=== PATIENT | female | born 1930 | race Caucasian/White ===

== ENCOUNTER 2017-02-17 13:05 | Inpatient (IN) | payer MEDICARE, OTHER ==
[~2017-02-17] VITALS: Ht 157.5 cm; Wt 67.5 kg
[~2017-02-17 13:05] MED LIST: ALBU8.5H IH; ASPI81TA2 PO; BRIM10DR10 OU; BRIN10DR OU; BUPR150T2 PO; HYDR-3971 PO; IBUP100T36 PO; METF500T4 PO; SIMV-260 PO; VITA80008 PO; ZOLP5TAB8 PO; [UNRECOGNIZED DRUG - OTHER]
[2017-02-17 13:47] LABS: GLUCOSE,POINT OF CARE 116 MG/DL (70-110)
[2017-02-17 15:07] LABS: ANION GAP 11 mmol/L (8-16); CALCIUM, TOTAL 9.1 mg/dL (8.8-10.5); CARBON DIOXIDE 23 mmol/L (22-29); CHLORIDE 101 mmol/L (98-107); CREATININE 0.78 mg/dL (0.60-1.30); GLOMERULAR FILTR. RATE CALC > 60 mL/min (>60); POTASSIUM 4.9 mmol/L (3.5-5.1); SODIUM SERUM 135 mmol/L (136-145); UREA NITROGEN, BLOOD 21 mg/dL (7-18)
[2017-02-17 15:13] LABS: ALANINE AMINOTRANSFERASE 20 U/L (12-78); ALBUMIN 3.7 g/dL (3.4-5.0); ASPARTATE AMINOTRANSFERASE 29 U/L (15-37); BILIRUBIN,TOTAL 0.6 mg/dL (0.1-1.0); TOTAL PROTEIN, SERUM 7.1 g/dL (6.4-8.2)
[2017-02-17] MEDS ORDERED: ACETAMINOPHEN 500 MG TABLET PO ONE (16:15)
[2017-02-17] MEDS ORDERED: IBUP-1681 PO (16:20)
[2017-02-17 16:40] LABS: HEMATOCRIT 40.8 % (36-46); HEMOGLOBIN 13.1 g/dL (12.0-16.0); MEAN CORPUSCULAR HEMOGLOBIN 29.2 pg (26.0-34.0); MEAN CORPUSCULAR HGB CONC 32.2 G/dL (31.0-37.0); MEAN CORPUSCULAR VOLUME 91 fL (80-100); PLATELET COUNT (AUTO) 296 K/uL (150-450); RED CELL DISTRIBUTION WIDTH 14.5 % (11.5-14.5); WHITE BLOOD COUNT (AUTO) 18.9 K/uL (4.5-11.0)
[2017-02-17 17:06] LABS: BAND NEUTROPHILS % (MANUAL) 12 % (1-5); LYMPHOCYTES % (MANUAL) 5 % (22-44); TOTAL CELLS COUNTED 100
[2017-02-17 17:18] LABS: APPEARANCE,URINE CLEAR (CLEAR); GLUCOSE, URINE (UA) NEGATIVE (NEGATIVE); KETONES,URINE TRACE mg/dL (NEGATIVE); LEUKOCYTE ESTERASE ,URINE TRACE (NEGATIVE); OCCULT BLOOD,URINE NEGATIVE (NEGATIVE); PH,URINE 6.5 (5.0-8.0); PROTEIN,URINE NEGATIVE (NEGATIVE)
[2017-02-17 17:19] LABS: RBC,URINE 0-2 /HPF (0-2); SQUAMOUS EPITHELIAL CELL,UR Few /LPF (None Seen)
[2017-02-17] MEDS ORDERED: SODIUM CHLORIDE 0.9% 1,000 ML IV ONE (17:45)
[2017-02-17] MEDS ORDERED: CefTRIAXone 1 GM/DEXTROSE 50 ML IV ONE (17:45)
[2017-02-17] MEDS ORDERED: 0.9% SODIUM CHLORIDE 10 ML SYRINGE IVP PRN (19:00)
[2017-02-17] MEDS ORDERED: ACETAMINOPHEN 325 MG TABLET PO PRN ×2 (19:00→20:30)
[2017-02-17] MEDS ORDERED: INSULIN ASPART 100 UNITS/ML SQ PRN (20:30)
[2017-02-17] MEDS ORDERED: MAGNESIUM HYDROXIDE SUSPENSION 30 ML UDCUP PO PRN (20:30)
[2017-02-17] MEDS ORDERED: ZOLPIDEM TARTRATE 5 MG TABLET PO PRN (20:30)
[2017-02-17] MEDS ORDERED: DEXTROSE 50%-WATER 25 GM/50 ML SYRINGE IVP PRN (20:30)
[2017-02-17] MEDS ORDERED: MORPHINE SULFATE 2 MG/ML SYRINGE IVP PRN (20:30)
[2017-02-17] MEDS ORDERED: ONDANSETRON HCL 4 MG/2 ML VIAL IVP PRN (20:30)
[2017-02-17] MEDS ORDERED: BISACODYL 10 MG RECTAL RECTAL SUPPOSITORY PR PRN (20:30)
[2017-02-17] MEDS ORDERED: ALBUTEROL SULFATE 2.5 MG/0.5 ML NEB SOLUTION NEB PRN (20:30)
[2017-02-17] MEDS ORDERED: IPRATROPIUM BROMIDE 0.5 MG/2.5 ML NEB SOLUTION NEB PRN (20:30)
[2017-02-17 20:50] VITALS: BP 137/70
[2017-02-17] MEDS: SIMVASTATIN 20 MG TABLET PO SCH (21:57)
[2017-02-17] MEDS: BRIMONIDINE/TIMOLOL 0.2-0.5% 5 ML OPHTHALMIC SOLUTION OU SCH (21:57)
[2017-02-17 23:35] VITALS: BP 132/58
[2017-02-18 04:54] VITALS: BP 123/66
[2017-02-18 06:17] LABS: GLUCOSE,POINT OF CARE 134 MG/DL (70-110)
[2017-02-18 06:52] LABS: GLUCOSE,POINT OF CARE 119 MG/DL (70-110)
[2017-02-18 07:26] VITALS: BP 143/77
[2017-02-18 09:23] LABS: BASOPHILS # (AUTO) 0.04 K/uL (0.00-0.20); BASOPHILS % (AUTO) 0.3 % (0.0-2.0); EOSINOPHILS # (AUTO) 0.37 K/uL (0.00-0.70); EOSINOPHILS % (AUTO) 2.72 % (1.0-6.0); HEMATOCRIT 36.4 % (36-46); HEMOGLOBIN 11.9 g/dL (12.0-16.0); LYMPHOCYTES # (AUTO) 1.4 K/uL (1.0-4.8); LYMPHOCYTES % (AUTO) 9.9 % (22.0-44.0); MEAN CORPUSCULAR HEMOGLOBIN 29.8 pg (26.0-34.0); MEAN CORPUSCULAR HGB CONC 32.6 G/dL (31.0-37.0); MEAN CORPUSCULAR VOLUME 91 fL (80-100); MONOCYTES # (AUTO) 0.9 K/uL (0.1-1.0); MONOCYTES % (AUTO) 6.8 % (2.0-9.0); NEUTROPHILS % (AUTO) 80.3 % (40.0-70.0); PLATELET COUNT (AUTO) 353 K/uL (150-450); RED BLOOD CELL COUNT(AUTO) 3.99 MIL/uL (4.00-5.20); RED CELL DISTRIBUTION WIDTH 14.5 % (11.5-14.5); WHITE BLOOD COUNT (AUTO) 13.7 K/uL (4.5-11.0)
[2017-02-18] MEDS: BRIMONIDINE/TIMOLOL 0.2-0.5% 5 ML OPHTHALMIC SOLUTION OU SCH ×2 (09:26→20:52)
[2017-02-18] MEDS: CefTRIAXone 1 GM/DEXTROSE 50 ML IV SCH (09:26)
[2017-02-18] MEDS: NYSTATIN 15 GM POWDER BOTTLE TP SCH ×2 (09:26→20:53)
[2017-02-18] MEDS: PANTOPRAZOLE SODIUM 40 MG DR TABLET PO SCH (09:27)
[2017-02-18] MEDS: MetFORMIN HCL 500 MG TABLET PO SCH ×3 (09:27→17:51)
[2017-02-18] MEDS: BRINZOLAMIDE 1% 10 ML OPHTHALMIC SUSPENSION OU SCH (09:27)
[2017-02-18 09:35] LABS: ALANINE AMINOTRANSFERASE 24 U/L (12-78); ANION GAP 10 mmol/L (8-16); ASPARTATE AMINOTRANSFERASE 21 U/L (15-37); BILIRUBIN,TOTAL 0.6 mg/dL (0.1-1.0); CALCIUM, TOTAL 8.1 mg/dL (8.8-10.5); CARBON DIOXIDE 23 mmol/L (22-29); CHLORIDE 103 mmol/L (98-107); CREATININE 0.71 mg/dL (0.60-1.30); GLOMERULAR FILTR. RATE CALC > 60 mL/min (>60); PHOSPHORUS 2.4 mg/dL (2.5-4.9); POTASSIUM 3.8 mmol/L (3.5-5.1); SODIUM SERUM 136 mmol/L (136-145); TOTAL PROTEIN, SERUM 6.4 g/dL (6.4-8.2); UREA NITROGEN, BLOOD 13 mg/dL (7-18)
[2017-02-18 09:41] LABS: HEMOGLOBIN A1C 6.5 % (4.5-6.2)
[2017-02-18 10:36] LABS: INR 1.1 (0.9-1.1); PROTHROMBIN TIME 11.2 SEC (9.4-11.6)
[2017-02-18 11:09] VITALS: BP 122/83
[2017-02-18 11:26] LABS: GLUCOSE,POINT OF CARE 137 MG/DL (70-110)
[2017-02-18 15:15] VITALS: BP 105/49
[2017-02-18 18:07] LABS: GLUCOSE,POINT OF CARE 123 MG/DL (70-110)
[2017-02-18 20:05] VITALS: BP 118/52
[2017-02-18] MEDS: HYDROCODONE/ACETAMINOPHEN 5-325 MG TABLET PO PRN (20:52)
[2017-02-18] MEDS: SIMVASTATIN 20 MG TABLET PO SCH (20:53)
[2017-02-18 23:06] VITALS: BP 126/66
[2017-02-19 01:01] LABS: GLUCOSE,POINT OF CARE 109 MG/DL (70-110)
[2017-02-19 03:30] VITALS: BP 132/70
[2017-02-19 07:49] VITALS: BP 149/78
[2017-02-19] MEDS: CefTRIAXone 1 GM/DEXTROSE 50 ML IV SCH (07:57)
[2017-02-19] MEDS: PANTOPRAZOLE SODIUM 40 MG DR TABLET PO SCH (07:57)
[2017-02-19] MEDS: MetFORMIN HCL 500 MG TABLET PO SCH ×3 (07:57→17:29)
[2017-02-19] MEDS: HYDROCODONE/ACETAMINOPHEN 5-325 MG TABLET PO PRN (07:57)
[2017-02-19] MEDS: NYSTATIN 15 GM POWDER BOTTLE TP SCH ×2 (07:58→21:19)
[2017-02-19] MEDS ORDERED: SODIUM CHLORIDE 0.9% 500 ML IV ONE (08:05)
[2017-02-19 11:06] LABS: GLUCOSE,POINT OF CARE 116 MG/DL (70-110)
[2017-02-19 11:41] VITALS: BP 125/75
[2017-02-19] MEDS: BRINZOLAMIDE 1% 10 ML OPHTHALMIC SUSPENSION OU SCH (13:31)
[2017-02-19] MEDS: BRIMONIDINE/TIMOLOL 0.2-0.5% 5 ML OPHTHALMIC SOLUTION OU SCH ×2 (13:31→21:19)
[2017-02-19 13:57] LABS: GLUCOSE,POINT OF CARE 97 MG/DL (70-110)
[2017-02-19 15:52] VITALS: BP 123/81
[2017-02-19 17:53] LABS: GLUCOSE,POINT OF CARE 118 MG/DL (70-110)
[2017-02-19 19:20] VITALS: BP 123/70
[2017-02-19] MEDS: SIMVASTATIN 20 MG TABLET PO SCH (21:19)
[2017-02-19 23:27] LABS: GLUCOSE,POINT OF CARE 118 MG/DL (70-110)
[2017-02-20 00:15] VITALS: BP 128/65
[2017-02-20 05:00] VITALS: BP 132/59
[2017-02-20 06:12] LABS: GLUCOSE,POINT OF CARE 106 MG/DL (70-110)
[2017-02-20] MEDS: MetFORMIN HCL 500 MG TABLET PO SCH ×4 (08:00→18:00)
[2017-02-20] MEDS: CefTRIAXone 1 GM/DEXTROSE 50 ML IV SCH (08:19)
[2017-02-20] MEDS: NYSTATIN 15 GM POWDER BOTTLE TP SCH ×2 (08:20→20:12)
[2017-02-20] MEDS: BRIMONIDINE/TIMOLOL 0.2-0.5% 5 ML OPHTHALMIC SOLUTION OU SCH ×2 (08:20→20:12)
[2017-02-20] MEDS: BRINZOLAMIDE 1% 10 ML OPHTHALMIC SUSPENSION OU SCH (08:20)
[2017-02-20] MEDS: PANTOPRAZOLE SODIUM 40 MG DR TABLET PO SCH (08:20)
[2017-02-20 10:12] VITALS: BP 132/59
[2017-02-20 13:17] LABS: GLUCOSE,POINT OF CARE 106 MG/DL (70-110)
[2017-02-20 15:05] VITALS: BP 134/69
[2017-02-20 18:19] LABS: BASOPHILS % (AUTO) 0.2 % (0.0-2.0); EOSINOPHILS % (AUTO) 2.7 % (1.0-6.0); HEMOGLOBIN 12.7 g/dL (12.0-16.0); LYMPHOCYTES # (AUTO) 1.3 K/uL (1.0-4.8); LYMPHOCYTES % (AUTO) 9.3 % (22.0-44.0); MEAN CORPUSCULAR HEMOGLOBIN 28.8 pg (26.0-34.0); MEAN CORPUSCULAR HGB CONC 31.8 G/dL (31.0-37.0); MEAN CORPUSCULAR VOLUME 91 fL (80-100); MONOCYTES % (AUTO) 7.1 % (2.0-9.0); NEUTROPHILS # (AUTO) 11.3 K/uL (1.8-7.7); NEUTROPHILS % (AUTO) 80.7 % (40.0-70.0); PLATELET COUNT (AUTO) 389 K/uL (150-450); RED BLOOD CELL COUNT(AUTO) 4.41 MIL/uL (4.00-5.20); RED CELL DISTRIBUTION WIDTH 13.9 % (11.5-14.5)
[2017-02-20 18:27] LABS: CREATININE 0.9 mg/dL (0.60-1.30); POTASSIUM 4.4 mmol/L (3.5-5.1)
[2017-02-20 18:35] LABS: ALBUMIN 3.1 g/dL (3.4-5.0); BILIRUBIN,TOTAL 0.3 mg/dL (0.1-1.0); TOTAL PROTEIN, SERUM 7.4 g/dL (6.4-8.2)
[2017-02-20] MEDS: HYDROCODONE/ACETAMINOPHEN 5-325 MG TABLET PO PRN (20:11)
[2017-02-20] MEDS: SIMVASTATIN 20 MG TABLET PO SCH (20:11)
[2017-02-20 23:18] VITALS: BP 128/68
[2017-02-21] MEDS: HYDROCODONE/ACETAMINOPHEN 5-325 MG TABLET PO PRN ×2 (02:18→12:10)
[2017-02-21 05:33] LABS: GLUCOSE,POINT OF CARE 135 MG/DL (70-110)
[2017-02-21 05:42] LABS: GLUCOSE,POINT OF CARE 122 MG/DL (70-110)
[2017-02-21 06:05] VITALS: BP 136/70
[2017-02-21 07:42] LABS: GLUCOSE,POINT OF CARE 139 MG/DL (70-110)
[2017-02-21] MEDS: CefTRIAXone 1 GM/DEXTROSE 50 ML IV SCH (07:44)
[2017-02-21 07:50] VITALS: BP 113/61
[2017-02-21] MEDS: BRIMONIDINE/TIMOLOL 0.2-0.5% 5 ML OPHTHALMIC SOLUTION OU SCH (07:58)
[2017-02-21] MEDS: PANTOPRAZOLE SODIUM 40 MG DR TABLET PO SCH (07:58)
[2017-02-21] MEDS: MetFORMIN HCL 500 MG TABLET PO SCH ×3 (07:58→17:46)
[2017-02-21] MEDS: BRINZOLAMIDE 1% 10 ML OPHTHALMIC SUSPENSION OU SCH (07:59)
[2017-02-21] MEDS: NYSTATIN 15 GM POWDER BOTTLE TP SCH (08:09)
[2017-02-21 11:15] VITALS: BP 123/79
[2017-02-21 11:42] LABS: GLUCOSE,POINT OF CARE 138 MG/DL (70-110)
[2017-02-21 15:30] VITALS: BP 142/70
[2017-02-21] MEDS ORDERED: CEFX1I IV (16:06)
[2017-02-21] MEDS ORDERED: NYST1POW4 MC (16:07)
[2017-02-21] MEDS ORDERED: PANT40TA25 PO (16:07)
[2017-02-21] MEDS ORDERED: ACET-2902 PO (16:08)
[2017-02-21] MEDS ORDERED: BISA5TAB12 PO (16:09)
[2017-02-21] MEDS ORDERED: HYDR-309 PO (16:10)
[2017-02-21] MEDS ORDERED: INSNOV SQ (16:11)
[2017-02-21] MEDS ORDERED: MOM30 PO (16:12)
[2017-02-21] MEDS ORDERED: ZOLP5 PO (16:13)
[2017-02-23 17:22] LABS: GLUCOSE,POINT OF CARE 157 MG/DL (70-110)
== END 2017-02-21 18:45 | DRG 872 ==
LOC: EMS 13:07 → 6N 19:35
PROVIDERS: ADMIT Internal Medicine; ATTEND Internal Medicine
DX: A41.9 Sepsis, unspecified organism (principal); N39.0 Urinary tract infection, site not specified; E87.1 Hypo-osmolality and hyponatremia; E11.65 Type 2 diabetes mellitus with hyperglycemia; M19.90 Unspecified osteoarthritis, unspecified site; J45.909 Unspecified asthma, uncomplicated; K21.9 Gastro-esophageal reflux disease without esophagitis; H40.9 Unspecified glaucoma; E78.00 Pure hypercholesterolemia, unspecified; G47.00 Insomnia, unspecified; R29.6 Repeated falls; M41.86 Other forms of scoliosis, lumbar region; E78.5 Hyperlipidemia, unspecified; M47.9 Spondylosis, unspecified; F32.9 Major depressive disorder, single episode, unspecified; I70.0 Atherosclerosis of aorta; M79.602 Pain in left arm; R07.81 Pleurodynia; Z88.8 Allergy status to other drugs, medicaments and biological substances; Z79.82 Long term (current) use of aspirin; Z79.899 Other long term (current) drug therapy; Z79.1 Long term (current) use of non-steroidal anti-inflammatories (NSAID); Z79.84 Long term (current) use of oral hypoglycemic drugs; Z79.891 Long term (current) use of opiate analgesic; Z87.81 Personal history of (healed) traumatic fracture
CPT/HCPCS: 70450; 71101; 72131; 82962; 83036; 83735; 84100; 87040; 96365; 96366; 97116; 97162; 97530; 99285; J0696; J2270; J7030; J7040

== ENCOUNTER 2018-03-03 06:58 | Inpatient (IN) | payer MEDICARE, OTHER ==
[~2018-03-03] VITALS: Ht 153 cm; Wt 64.0 kg
[~2018-03-03 06:58] MED LIST changes: +ACET-2902 PO; -ALBU8.5H IH; -ASPI81TA2 PO; +BISA5TAB12 PO; -BUPR150T2 PO; +CEFX1I IV; +HYDR-309 PO; -HYDR-3971 PO; -IBUP100T36 PO; +INSNOV SQ; +METF-444 PO; -METF500T4 PO; +MOM30 PO; +NYST1POW4 TP; +PANT40TA25 PO; -VITA80008 PO; +ZOLP5 PO; -[UNRECOGNIZED DRUG - OTHER]
[2018-03-03 07:33] LABS: GLUCOSE,POINT OF CARE 131 MG/DL (70-110)
[2018-03-03 08:28] LABS: BASOPHILS % (AUTO) 0.5 % (0.0-2.0); EOSINOPHILS % (AUTO) 1.3 % (1.0-6.0); HEMATOCRIT 32.7 % (36-46); HEMOGLOBIN 11.2 g/dL (12.0-16.0); LYMPHOCYTES # (AUTO) 1.2 K/uL (1.0-4.8); LYMPHOCYTES % (AUTO) 9.3 % (22.0-44.0); MEAN CORPUSCULAR HEMOGLOBIN 31.2 pg (26.0-34.0); MEAN CORPUSCULAR HGB CONC 34.2 G/dL (31.0-37.0); MEAN CORPUSCULAR VOLUME 91 fL (80-100); MONOCYTES # (AUTO) 1.1 K/uL (0.1-1.0); MONOCYTES % (AUTO) 8.8 % (2.0-9.0); NEUTROPHILS # (AUTO) 10.2 K/uL (1.8-7.7); NEUTROPHILS % (AUTO) 80.1 % (40.0-70.0); PLATELET COUNT (AUTO) 320 K/uL (150-450); RED BLOOD CELL COUNT(AUTO) 3.58 MIL/uL (4.00-5.20); RED CELL DISTRIBUTION WIDTH 14.1 % (11.5-14.5)
[2018-03-03 08:37] LABS: PROTHROMBIN TIME 10.1 SEC (9.4-11.6)
[2018-03-03 08:38] LABS: ANION GAP 9 mmol/L (8-16); CALCIUM, TOTAL 8.5 mg/dL (8.8-10.5); CARBON DIOXIDE 24 mmol/L (22-29); CHLORIDE 99 mmol/L (98-107); CREATININE 0.95 mg/dL (0.60-1.30); GLOMERULAR FILTR. RATE CALC 56 mL/min (>60); GLUCOSE,RANDOM 125 mg/dL (70-110); POTASSIUM 4.8 mmol/L (3.5-5.1); SODIUM SERUM 132 mmol/L (136-145); UREA NITROGEN, BLOOD 37 mg/dL (7-18)
[2018-03-03 09:02] LABS: ALANINE AMINOTRANSFERASE 50 U/L (12-78); ALBUMIN 3.1 g/dL (3.4-5.0); ALKALINE PHOSPHATASE 80 U/L (46-116); ASPARTATE AMINOTRANSFERASE 33 U/L (15-37); BILIRUBIN,TOTAL 0.7 mg/dL (0.1-1.0); CREATINE KINASE MB 3.3 ng/mL (0-5); CREATINE KINASE, TOTAL 205 U/L (26-192); TOTAL PROTEIN, SERUM 5.7 g/dL (6.4-8.2)
[2018-03-03 09:35] LABS: B-TYPE NATRIURETIC PEPTIDE 797 pg/mL (0-100)
[2018-03-03] MEDS ORDERED: NITROGLYCERIN 2% (1 GM=INCH) PACKET TP ONE (10:00)
[2018-03-03 10:25] LABS: APPEARANCE,URINE CLOUDY (CLEAR); BILIRUBIN,URINE NEGATIVE (NEGATIVE); GLUCOSE, URINE (UA) NEGATIVE (NEGATIVE); KETONES,URINE NEGATIVE (NEGATIVE); LEUKOCYTE ESTERASE ,URINE SMALL (NEGATIVE); NITRATE,URINE NEGATIVE (NEGATIVE); OCCULT BLOOD,URINE NEGATIVE (NEGATIVE); PH,URINE 5.5 (5.0-8.0); PROTEIN,URINE NEGATIVE (NEGATIVE); UROBILINOGEN,URINE 0.2 mg/dL (<=1.0)
[2018-03-03] MEDS: FUROSEMIDE 40 MG/4 ML VIAL IVP ONE ×2 (10:25→11:25)
[2018-03-03 11:01] LABS: BACTERIA,URINE Few /HPF (None Seen); RBC,URINE 0-2 /HPF (0-2); SQUAMOUS EPITHELIAL CELL,UR Few /LPF (None Seen)
[2018-03-03] MEDS ORDERED: DEXTROSE 50%-WATER 25 GM/50 ML SYRINGE IVP PRN (11:15)
[2018-03-03] MEDS ORDERED: ALBUTEROL SULFATE 2.5 MG/0.5 ML NEB SOLUTION NEB PRN (11:15)
[2018-03-03] MEDS ORDERED: CefTRIAXone SODIUM 1 GM in DEXTROSE 5%-WATER 10 ML IV ONE ×2 (11:15→11:30)
[2018-03-03] MEDS ORDERED: MAGNESIUM HYDROXIDE SUSPENSION 30 ML UDCUP PO PRN (11:15)
[2018-03-03 11:47] VITALS: BP 119/65
[2018-03-03 12:31] VITALS: BP 153/77
[2018-03-03 15:26] VITALS: BP 145/79
[2018-03-03] MEDS: ASPIRIN 81 MG CHEWABLE TABLET PO SCH (15:42)
[2018-03-03] MEDS: LISINOPRIL 10 MG TABLET PO SCH (15:42)
[2018-03-03] MEDS: INSULIN LISPRO 100 UNITS/ML SQ PRN (17:30)
[2018-03-03] MEDS: ACETAMINOPHEN 325 MG TABLET PO PRN ×2 (17:35→20:26)
[2018-03-03 20:21] VITALS: BP 107/48
[2018-03-03] MEDS: ATORVASTATIN CALCIUM 20 MG TABLET PO SCH (20:25)
[2018-03-03] MEDS: CARVEDILOL 6.25 MG TABLET PO SCH (20:25)
[2018-03-03] MEDS: DOCUSATE SODIUM 100 MG CAPSULE PO SCH (20:25)
[2018-03-03] MEDS: HEPARIN SODIUM,PORCINE 5,000 UNITS/ML VIAL SQ SCH (20:26)
[2018-03-03] MEDS ORDERED: 0.9% SODIUM CHLORIDE 5 ML NEB SOLUTION NEB ONE (22:54)
[2018-03-04] VITALS (7 sets, daily range): BP systolic 102–143; BP diastolic 50–65
[2018-03-04 00:42] LABS: GLUCOMETER DEV NAME(LOC) 5S 2Q; GLUCOSE,POINT OF CARE 198 MG/DL (70-110)
[2018-03-04 00:42] LABS: GLUCOMETER DEV NAME(LOC) 5S 2Q; GLUCOSE,POINT OF CARE 79 MG/DL (70-110)
[2018-03-04] MEDS: ACETAMINOPHEN 325 MG TABLET PO PRN ×2 (02:22→08:30)
[2018-03-04] MEDS: IBUPROFEN 600 MG TABLET PO PRN (06:29)
[2018-03-04 07:18] LABS: CALCIUM, TOTAL 8.7 mg/dL (8.8-10.5); CREATININE 1.07 mg/dL (0.60-1.30); POTASSIUM 4.1 mmol/L (3.5-5.1)
[2018-03-04] MEDS: LISINOPRIL 10 MG TABLET PO SCH (08:28)
[2018-03-04] MEDS: PANTOPRAZOLE SODIUM 40 MG DR TABLET PO SCH (08:29)
[2018-03-04] MEDS: CARVEDILOL 6.25 MG TABLET PO SCH ×2 (08:29→21:06)
[2018-03-04] MEDS: ASPIRIN 81 MG CHEWABLE TABLET PO SCH (08:29)
[2018-03-04] MEDS: DOCUSATE SODIUM 100 MG CAPSULE PO SCH ×2 (08:29→21:06)
[2018-03-04] MEDS: FUROSEMIDE 20 MG/2 ML VIAL IVP SCH (08:30)
[2018-03-04] MEDS: HEPARIN SODIUM,PORCINE 5,000 UNITS/ML VIAL SQ SCH ×2 (08:30→21:15)
[2018-03-04] MEDS ORDERED: ZOLPIDEM TARTRATE 5 MG TABLET PO PRN (10:30)
[2018-03-04] MEDS: OxyCODONE HCL/ACETAMINOPHEN 5-325 MG TABLET PO PRN ×2 (10:56→21:21)
[2018-03-04 14:19] LABS: GLUCOMETER DEV NAME(LOC) 5S 2Q; GLUCOSE,POINT OF CARE 148 MG/DL (70-110)
[2018-03-04] MEDS ORDERED: LORazepam 2 MG/ML VIAL IVP PRN (15:45)
[2018-03-04] MEDS: INSULIN LISPRO 100 UNITS/ML SQ PRN (18:07)
[2018-03-04 18:47] LABS: GLUCOMETER DEV NAME(LOC) 5S 2Q; GLUCOSE,POINT OF CARE 173 MG/DL (70-110)
[2018-03-04] MEDS ORDERED: DONEPEZIL HCL 5 MG TABLET PO SCH (21:00)
[2018-03-04] MEDS: ATORVASTATIN CALCIUM 20 MG TABLET PO SCH (21:06)
[2018-03-05] VITALS (7 sets, daily range): BP systolic 95–128; BP diastolic 47–81
[2018-03-05 06:45] LABS: BASOPHILS % (AUTO) 0.6 % (0.0-2.0); EOSINOPHILS % (AUTO) 2.3 % (1.0-6.0); HEMATOCRIT 34.7 % (36-46); HEMOGLOBIN 11.7 g/dL (12.0-16.0); LYMPHOCYTES # (AUTO) 1.5 K/uL (1.0-4.8); MEAN CORPUSCULAR HEMOGLOBIN 30.8 pg (26.0-34.0); MEAN CORPUSCULAR HGB CONC 33.9 G/dL (31.0-37.0); MEAN CORPUSCULAR VOLUME 91 fL (80-100); MONOCYTES # (AUTO) 1.2 K/uL (0.1-1.0); MONOCYTES % (AUTO) 10.1 % (2.0-9.0); NEUTROPHILS # (AUTO) 9.1 K/uL (1.8-7.7); PLATELET COUNT (AUTO) 359 K/uL (150-450); RED BLOOD CELL COUNT(AUTO) 3.81 MIL/uL (4.00-5.20); RED CELL DISTRIBUTION WIDTH 13.9 % (11.5-14.5)
[2018-03-05 06:58] LABS: GLUCOMETER DEV NAME(LOC) 5S 1M; GLUCOSE,POINT OF CARE 132 MG/DL (70-110)
[2018-03-05 06:58] LABS: GLUCOMETER DEV NAME(LOC) 5S 2Q; GLUCOSE,POINT OF CARE 127 MG/DL (70-110)
[2018-03-05 06:58] LABS: GLUCOMETER DEV NAME(LOC) 5S 1M; GLUCOSE,POINT OF CARE 96 MG/DL (70-110)
[2018-03-05 07:12] LABS: CALCIUM, TOTAL 8.8 mg/dL (8.8-10.5); CREATININE 1.25 mg/dL (0.60-1.30); POTASSIUM 4.1 mmol/L (3.5-5.1); THYROID STIMULATING HORMONE 0.51 uIU/mL (0.36-3.74)
[2018-03-05] MEDS: FUROSEMIDE 20 MG/2 ML VIAL IVP SCH (08:09)
[2018-03-05] MEDS: HEPARIN SODIUM,PORCINE 5,000 UNITS/ML VIAL SQ SCH ×2 (08:09→21:23)
[2018-03-05] MEDS: DOCUSATE SODIUM 100 MG CAPSULE PO SCH ×2 (08:09→21:22)
[2018-03-05] MEDS: CYANOCOBALAMIN 500 MCG TABLET PO SCH (08:09)
[2018-03-05] MEDS: ASPIRIN 81 MG CHEWABLE TABLET PO SCH (08:10)
[2018-03-05] MEDS: CARVEDILOL 6.25 MG TABLET PO SCH ×2 (08:10→21:23)
[2018-03-05] MEDS: PANTOPRAZOLE SODIUM 40 MG DR TABLET PO SCH (08:10)
[2018-03-05] MEDS: OxyCODONE HCL/ACETAMINOPHEN 5-325 MG TABLET PO PRN ×2 (08:10→21:30)
[2018-03-05 08:43] LABS: VITAMIN B12 LEVEL 1252 pg/mL (211-911)
[2018-03-05] MEDS: LISINOPRIL 10 MG TABLET PO SCH (09:00)
[2018-03-05 09:23] LABS: FOLATE SERUM > 24.0 ng/mL (5.4-)
[2018-03-05] MEDS ORDERED: DENTURE ADHESIVE 68 GM CREAM DT PRN (15:00)
[2018-03-05] MEDS: CefTRIAXone SODIUM 1 GM in DEXTROSE 5%-WATER 10 ML IV SCH (16:06)
[2018-03-05] MEDS: IBUPROFEN 600 MG TABLET PO PRN (17:46)
[2018-03-05] MEDS: INSULIN LISPRO 100 UNITS/ML SQ PRN (17:49)
[2018-03-05] MEDS ORDERED: DONEPEZIL HCL 5 MG TABLET PO SCH (21:00)
[2018-03-05] MEDS: ATORVASTATIN CALCIUM 20 MG TABLET PO SCH (21:23)
[2018-03-06 03:22] LABS: GLUCOMETER DEV NAME(LOC) 5S 1M; GLUCOSE,POINT OF CARE 134 MG/DL (70-110)
[2018-03-06 03:22] LABS: GLUCOMETER DEV NAME(LOC) 5S 1M; GLUCOSE,POINT OF CARE 172 MG/DL (70-110)
[2018-03-06 03:23] LABS: GLUCOMETER DEV NAME(LOC) 5S 1M; GLUCOSE,POINT OF CARE 130 MG/DL (70-110)
[2018-03-06] MEDS: IBUPROFEN 600 MG TABLET PO PRN (04:03)
[2018-03-06 05:09] VITALS: BP 102/52
[2018-03-06 07:13] LABS: BASOPHILS % (AUTO) 0.7 % (0.0-2.0); EOSINOPHILS % (AUTO) 5.6 % (1.0-6.0); HEMATOCRIT 33.5 % (36-46); HEMOGLOBIN 11.6 g/dL (12.0-16.0); LYMPHOCYTES # (AUTO) 1.8 K/uL (1.0-4.8); LYMPHOCYTES % (AUTO) 16.8 % (22.0-44.0); MEAN CORPUSCULAR HEMOGLOBIN 31.4 pg (26.0-34.0); MEAN CORPUSCULAR HGB CONC 34.6 G/dL (31.0-37.0); MEAN CORPUSCULAR VOLUME 91 fL (80-100); MONOCYTES # (AUTO) 1.1 K/uL (0.1-1.0); MONOCYTES % (AUTO) 10.8 % (2.0-9.0); NEUTROPHILS % (AUTO) 66.1 % (40.0-70.0); PLATELET COUNT (AUTO) 323 K/uL (150-450); RED BLOOD CELL COUNT(AUTO) 3.69 MIL/uL (4.00-5.20); RED CELL DISTRIBUTION WIDTH 13.7 % (11.5-14.5)
[2018-03-06 07:26] VITALS: BP 118/60
[2018-03-06 07:31] LABS: ALBUMIN 2.7 g/dL (3.4-5.0); BILIRUBIN,TOTAL 0.3 mg/dL (0.1-1.0); CALCIUM, TOTAL 9.1 mg/dL (8.8-10.5); CREATININE 1.39 mg/dL (0.60-1.30); POTASSIUM 4.4 mmol/L (3.5-5.1)
[2018-03-06] MEDS: OxyCODONE HCL/ACETAMINOPHEN 5-325 MG TABLET PO PRN (08:01)
[2018-03-06 09:08] LABS: GLUCOMETER DEV NAME(LOC) 5S 1M; GLUCOSE,POINT OF CARE 119 MG/DL (70-110)
[2018-03-06] MEDS: PANTOPRAZOLE SODIUM 40 MG DR TABLET PO SCH (09:15)
[2018-03-06] MEDS: DOCUSATE SODIUM 100 MG CAPSULE PO SCH (09:15)
[2018-03-06] MEDS: CYANOCOBALAMIN 500 MCG TABLET PO SCH (09:15)
[2018-03-06] MEDS: FUROSEMIDE 20 MG/2 ML VIAL IVP SCH (09:15)
[2018-03-06] MEDS: ASPIRIN 81 MG CHEWABLE TABLET PO SCH (09:15)
[2018-03-06] MEDS: HEPARIN SODIUM,PORCINE 5,000 UNITS/ML VIAL SQ SCH (09:16)
[2018-03-06 11:13] VITALS: BP 135/73
[2018-03-06] MEDS: CARVEDILOL 6.25 MG TABLET PO SCH (11:17)
[2018-03-06] MEDS: LISINOPRIL 10 MG TABLET PO SCH (11:17)
[2018-03-06] MEDS: INSULIN LISPRO 100 UNITS/ML SQ PRN (11:53)
[2018-03-06 12:08] LABS: GLUCOMETER DEV NAME(LOC) 5S 1M; GLUCOSE,POINT OF CARE 154 MG/DL (70-110)
[2018-03-06 14:24] VITALS: BP 144/50
[2018-03-06] MEDS: CefTRIAXone SODIUM 1 GM in DEXTROSE 5%-WATER 10 ML IV SCH (15:19)
[2018-03-06] MEDS ORDERED: DONEPEZIL HCL 10 MG TABLET PO SCH (21:00)
== END 2018-03-06 16:20 | DRG 291 ==
LOC: EMS 06:59 → 5S 11:09
PROVIDERS: ADMIT Internal Medicine; ATTEND Internal Medicine
DX: I11.0 Hypertensive heart disease with heart failure (principal); G93.41 Metabolic encephalopathy; E11.9 Type 2 diabetes mellitus without complications; G30.9 Alzheimer's disease, unspecified; F02.80 Dementia in other diseases classified elsewhere, unspecified severity, without behavioral disturbance, psychotic disturbance, mood disturbance, and anxiety; N39.0 Urinary tract infection, site not specified; E87.1 Hypo-osmolality and hyponatremia; I50.31 Acute diastolic (congestive) heart failure; K21.9 Gastro-esophageal reflux disease without esophagitis; J45.909 Unspecified asthma, uncomplicated; H40.9 Unspecified glaucoma; E78.00 Pure hypercholesterolemia, unspecified; M19.90 Unspecified osteoarthritis, unspecified site; I25.10 Atherosclerotic heart disease of native coronary artery without angina pectoris; E78.5 Hyperlipidemia, unspecified; K22.70 Barrett's esophagus without dysplasia; Z88.8 Allergy status to other drugs, medicaments and biological substances; Z79.4 Long term (current) use of insulin; Z79.899 Other long term (current) drug therapy; Z79.84 Long term (current) use of oral hypoglycemic drugs
CPT/HCPCS: 70450; 82607; 82746; 83036; 83605; 84443; 87086; 92610; 93005; 93306; 94640; 96365; 96375; 97116; 97162; 97530; 99285; J0696; J1644; J1940; J2060; J7060

== ENCOUNTER 2018-03-08 21:40 | Emergency (ER) | payer MEDICARE, OTHER ==
[~2018-03-08] VITALS: Ht 152.4 cm; Wt 54.5 kg
[~2018-03-08 21:40] MED LIST changes: -ZOLP5TAB8 PO
[2018-03-08] MEDS ORDERED: INSU100V SQ (22:16)
[2018-03-08] MEDS ORDERED: ATOR20TA86 PO (22:16)
[2018-03-08] MEDS ORDERED: CEFX1I IM (22:16)
[2018-03-08] MEDS ORDERED: OXYC-38 PO (22:16)
[2018-03-08] MEDS ORDERED: PANT40TA25 PO (22:16)
[2018-03-08] MEDS ORDERED: ZOLP5 PO (22:16)
[2018-03-08] MEDS ORDERED: DONE10TA8 PO (22:16)
[2018-03-08] MEDS ORDERED: CYAN250014 PO (22:16)
[2018-03-08] MEDS ORDERED: CARV6 PO (22:16)
[2018-03-08] MEDS ORDERED: ASPI81 PO (22:16)
[2018-03-08] MEDS ORDERED: LISI-661 PO (22:16)
[2018-03-08 23:24] LABS: BASOPHILS % (AUTO) 0.9 % (0.0-2.0); EOSINOPHILS % (AUTO) 2.2 % (1.0-6.0); HEMATOCRIT 35.1 % (36-46); HEMOGLOBIN 12.1 g/dL (12.0-16.0); LYMPHOCYTES # (AUTO) 1.7 K/uL (1.0-4.8); LYMPHOCYTES % (AUTO) 11.2 % (22.0-44.0); MEAN CORPUSCULAR HEMOGLOBIN 31.2 pg (26.0-34.0); MEAN CORPUSCULAR HGB CONC 34.4 G/dL (31.0-37.0); MEAN CORPUSCULAR VOLUME 91 fL (80-100); MONOCYTES # (AUTO) 1.2 K/uL (0.1-1.0); NEUTROPHILS # (AUTO) 11.9 K/uL (1.8-7.7); NEUTROPHILS % (AUTO) 77.7 % (40.0-70.0); PLATELET COUNT (AUTO) 384 K/uL (150-450); RED BLOOD CELL COUNT(AUTO) 3.87 MIL/uL (4.00-5.20); RED CELL DISTRIBUTION WIDTH 13.8 % (11.5-14.5)
[2018-03-08 23:29] LABS: CALCIUM, TOTAL 9.3 mg/dL (8.8-10.5); CREATININE 1.54 mg/dL (0.60-1.30); POTASSIUM 4.5 mmol/L (3.5-5.1)
[2018-03-08 23:34] LABS: ALBUMIN 2.7 g/dL (3.4-5.0); BILIRUBIN,TOTAL 0.3 mg/dL (0.1-1.0); TOTAL PROTEIN, SERUM 6.1 g/dL (6.4-8.2)
[2018-03-09 01:36] VITALS: BP 123/68
== END 2018-03-09 02:09 | disposition home or self-care (01) ==
LOC: EMS 21:41
DX: S00.03XA Contusion of scalp, initial encounter (principal); E87.1 Hypo-osmolality and hyponatremia; F03.90 Unspecified dementia, unspecified severity, without behavioral disturbance, psychotic disturbance, mood disturbance, and anxiety; R55 Syncope and collapse; J45.909 Unspecified asthma, uncomplicated; K21.9 Gastro-esophageal reflux disease without esophagitis; E78.00 Pure hypercholesterolemia, unspecified; E11.9 Type 2 diabetes mellitus without complications; Z88.6 Allergy status to analgesic agent; Z79.4 Long term (current) use of insulin; Z79.82 Long term (current) use of aspirin; W06.XXXA Fall from bed, initial encounter; Y93.89 Activity, other specified; Y92.89 Other specified places as the place of occurrence of the external cause; Y99.8 Other external cause status
CPT/HCPCS: 70450; 93005; 99285

== ENCOUNTER 2018-05-08 17:28 | Inpatient (IN) | payer MEDICARE, OTHER ==
[~2018-05-08] VITALS: Ht 152.4 cm; Wt 61.2 kg
[~2018-05-08 17:28] MED LIST changes: +ASPI81 PO; +ATOR20TA86 PO; -BRIM10DR10 OU; -BRIN10DR OU; +CARV6 PO; +CEFX1I IM; -CEFX1I IV; +CYAN250014 PO; +DONE10TA8 PO; -HYDR-309 PO; -INSNOV SQ; +INSU100V SQ; +LISI-661 PO; -METF-444 PO; -NYST1POW4 TP; +OXYC-38 PO; -SIMV-260 PO
[2018-05-08] MEDS ORDERED: CLOT10T PO (17:38)
[2018-05-08 17:58] LABS: GLUCOSE,POINT OF CARE 151 MG/DL (70-110)
[2018-05-08] MEDS ORDERED: SODIUM CHLORIDE 0.9% 500 ML IV ONE (18:15)
[2018-05-08] MEDS ORDERED: CYAN100099 PO (18:18)
[2018-05-08 19:14] LABS: HEMATOCRIT 33.7 % (36-46); HEMOGLOBIN 11.2 g/dL (12.0-16.0); MEAN CORPUSCULAR HEMOGLOBIN 29.6 pg (26.0-34.0); MEAN CORPUSCULAR HGB CONC 33.2 G/dL (31.0-37.0); MEAN CORPUSCULAR VOLUME 89 fL (80-100); PLATELET COUNT (AUTO) 342 K/uL (150-450); RED BLOOD CELL COUNT(AUTO) 3.78 MIL/uL (4.00-5.20); RED CELL DISTRIBUTION WIDTH 14.6 % (11.5-14.5)
[2018-05-08 19:33] LABS: PROTHROMBIN TIME 10.5 SEC (9.4-11.6)
[2018-05-08 19:36] LABS: ANION GAP 11 mmol/L (8-16); CALCIUM, TOTAL 8.5 mg/dL (8.8-10.5); CARBON DIOXIDE 20 mmol/L (22-29); CHLORIDE 100 mmol/L (98-107); GLOMERULAR FILTR. RATE CALC 42 mL/min (>60); GLUCOSE,RANDOM 144 mg/dL (70-110); POTASSIUM 4.8 mmol/L (3.5-5.1); SODIUM SERUM 131 mmol/L (136-145); UREA NITROGEN, BLOOD 31 mg/dL (7-18)
[2018-05-08 19:47] LABS: LACTIC ACID 1.6 mmol/L (0.4-2.0)
[2018-05-08 20:00] LABS: BAND NEUTROPHILS % (MANUAL) 15 % (0-5); EOSINOPHILS % (MANUAL) 4 % (1-6); LYMPHOCYTES % (MANUAL) 18 % (22-44); MONOCYTES % (MANUAL) 4 % (2-9); SEGMENTED NEUTROPHILS % 59 % (40-70)
[2018-05-08 20:02] LABS: ALANINE AMINOTRANSFERASE 26 U/L (12-78); ALBUMIN 3.1 g/dL (3.4-5.0); ALKALINE PHOSPHATASE 70 U/L (46-116); ASPARTATE AMINOTRANSFERASE 21 U/L (15-37); BILIRUBIN,TOTAL 0.3 mg/dL (0.1-1.0); CREATINE KINASE MB 3.5 ng/mL (0-5); CREATINE KINASE, TOTAL 162 U/L (26-192); THYROID STIMULATING HORMONE 0.71 uIU/mL (0.36-3.74)
[2018-05-08 20:43] LABS: APPEARANCE,URINE CLEAR (CLEAR); BILIRUBIN,URINE NEGATIVE (NEGATIVE); GLUCOSE, URINE (UA) NEGATIVE (NEGATIVE); KETONES,URINE NEGATIVE (NEGATIVE); LEUKOCYTE ESTERASE ,URINE NEGATIVE (NEGATIVE); NITRATE,URINE NEGATIVE (NEGATIVE); OCCULT BLOOD,URINE NEGATIVE (NEGATIVE); PH,URINE 5.5 (5.0-8.0); PROTEIN,URINE NEGATIVE (NEGATIVE); UROBILINOGEN,URINE 0.2 mg/dL (<=1.0)
[2018-05-08 20:48] LABS: AMPHET/METH SCREEN,URINE NEGATIVE (NEGATIVE); BARBITURATE SCREEN, URINE NEGATIVE (NEGATIVE); BENZODIAZEPINES SCREEN,URINE NEGATIVE (NEGATIVE); CANNABINOID SCREEN,URINE NEGATIVE (NEGATIVE); COCAINE SCREEN,URINE NEGATIVE (NEGATIVE); METHADONE SCREEN, URINE NEGATIVE (NEGATIVE); OPIATE SCREEN,URINE NEGATIVE (NEGATIVE)
[2018-05-08 20:51] LABS: PHENCYCLIDINE SCREEN,URINE NEGATIVE (NEGATIVE)
[2018-05-08] MEDS ORDERED: LEVOFLOXACIN 750 MG/D5% WATER 150 ML IV ONE (22:30)
[2018-05-08] MEDS ORDERED: ACETAMINOPHEN 325 MG TABLET PO PRN (22:45)
[2018-05-08] MEDS ORDERED: 0.9% SODIUM CHLORIDE 10 ML SYRINGE IVP PRN ×2 (22:45→23:00)
[2018-05-08] MEDS ORDERED: BISACODYL 5 MG EC TABLET PO PRN (23:00)
[2018-05-08] MEDS ORDERED: TEMAZEPAM 15 MG CAPSULE PO PRN (23:00)
[2018-05-08] MEDS ORDERED: DEXTROSE 50%-WATER 25 GM/50 ML SYRINGE IVP PRN (23:00)
[2018-05-08] MEDS ORDERED: IPRATROPIUM BROMIDE 0.5 MG/2.5 ML NEB SOLUTION NEB PRN (23:00)
[2018-05-08] MEDS ORDERED: ALBUTEROL SULFATE 2.5 MG/0.5 ML NEB SOLUTION NEB PRN (23:00)
[2018-05-08] MEDS ORDERED: INSULIN LISPRO 100 UNITS/ML SQ PRN (23:00)
[2018-05-08] MEDS ORDERED: ONDANSETRON HCL 4 MG/2 ML VIAL IVP PRN (23:00)
[2018-05-09] MEDS ORDERED: AZITHROMYCIN 500 MG/NS 250 ML IV SCH
[2018-05-09] MEDS ORDERED: SODIUM CHLORIDE 0.9% 250 ML IV ONE (00:02)
[2018-05-09] MEDS: HEPARIN SODIUM,PORCINE 5,000 UNITS/ML VIAL SQ SCH ×3 (00:05→20:30)
[2018-05-09 00:21] VITALS: BP 105/88
[2018-05-09] MEDS: CefTRIAXone SODIUM 1 GM in DEXTROSE 5%-WATER 10 ML IV SCH (03:01)
[2018-05-09] MEDS: AZITHROMYCIN 500 MG/NS 250 ML IV SCH (03:01)
[2018-05-09 04:21] VITALS: BP 121/70
[2018-05-09] MEDS: MAGNESIUM HYDROXIDE SUSPENSION 30 ML UDCUP PO PRN (06:33)
[2018-05-09 07:42] VITALS: BP 124/79
[2018-05-09] MEDS: CARVEDILOL 6.25 MG TABLET PO SCH ×2 (08:35→20:29)
[2018-05-09] MEDS: CLOTRIMAZOLE 10 MG TROCHE PO SCH ×4 (08:35→20:29)
[2018-05-09] MEDS: LACTOBACILLUS ACIDOPHILUS/BULGARICUS TABLET PO SCH ×2 (08:35→20:29)
[2018-05-09] MEDS: LISINOPRIL 10 MG TABLET PO SCH (08:35)
[2018-05-09] MEDS: CYANOCOBALAMIN 500 MCG TABLET PO SCH (08:35)
[2018-05-09] MEDS: PANTOPRAZOLE SODIUM 40 MG DR TABLET PO SCH (08:35)
[2018-05-09] MEDS: ASPIRIN 81 MG CHEWABLE TABLET PO SCH (08:36)
[2018-05-09 09:02] LABS: ALANINE AMINOTRANSFERASE 24 U/L (12-78); ALBUMIN 2.6 g/dL (3.4-5.0); ALKALINE PHOSPHATASE 62 U/L (46-116); ANION GAP 8 mmol/L (8-16); ASPARTATE AMINOTRANSFERASE 19 U/L (15-37); BILIRUBIN,TOTAL 0.3 mg/dL (0.1-1.0); CALCIUM, TOTAL 8.2 mg/dL (8.8-10.5); CARBON DIOXIDE 23 mmol/L (22-29); CHLORIDE 102 mmol/L (98-107); CHOL/HDL RATIO 3.5 (3.9-5.7); CHOLESTEROL 147 mg/dL (131-200); CREATININE 0.86 mg/dL (0.60-1.30); FREE T4 (FREE THYROXINE) 1.11 ng/dL (0.76-1.46); GLOMERULAR FILTR. RATE CALC > 60 mL/min (>60); GLUCOSE,RANDOM 112 mg/dL (70-110); HDL CHOLESTEROL 42 mg/dL (40-60); LDL CHOL (CALC.) 85 mg/dL (0-130); POTASSIUM 4.4 mmol/L (3.5-5.1); SODIUM SERUM 133 mmol/L (136-145); THYROID STIMULATING HORMONE 0.66 uIU/mL (0.36-3.74); TOTAL PROTEIN, SERUM 5.4 g/dL (6.4-8.2); TRIGLYCERIDES 98 mg/dL (15-150); UREA NITROGEN, BLOOD 24 mg/dL (7-18)
[2018-05-09 09:23] LABS: BASOPHILS % (AUTO) 0.8 % (0.0-2.0); EOSINOPHILS % (AUTO) 4.9 % (1.0-6.0); HEMATOCRIT 30.4 % (36-46); HEMOGLOBIN 10.5 g/dL (12.0-16.0); LYMPHOCYTES # (AUTO) 1.8 K/uL (1.0-4.8); LYMPHOCYTES % (AUTO) 19.2 % (22.0-44.0); MEAN CORPUSCULAR HEMOGLOBIN 30.6 pg (26.0-34.0); MEAN CORPUSCULAR HGB CONC 34.5 G/dL (31.0-37.0); MEAN CORPUSCULAR VOLUME 89 fL (80-100); MONOCYTES # (AUTO) 0.7 K/uL (0.1-1.0); MONOCYTES % (AUTO) 7.7 % (2.0-9.0); NEUTROPHILS # (AUTO) 6.3 K/uL (1.8-7.7); NEUTROPHILS % (AUTO) 67.4 % (40.0-70.0); PLATELET COUNT (AUTO) 308 K/uL (150-450); RED BLOOD CELL COUNT(AUTO) 3.43 MIL/uL (4.00-5.20); RED CELL DISTRIBUTION WIDTH 14.2 % (11.5-14.5)
[2018-05-09 16:10] VITALS: BP_SYST 139; BP_SYST 96; BP_DIAS 53; BP_DIAS 75
[2018-05-09 19:38] VITALS: BP 121/56
[2018-05-09] MEDS: ATORVASTATIN CALCIUM 20 MG TABLET PO SCH (20:29)
[2018-05-09] MEDS: DONEPEZIL HCL 10 MG TABLET PO SCH (21:00)
[2018-05-10] MEDS: DONEPEZIL HCL 10 MG TABLET PO SCH (00:10)
[2018-05-10] MEDS: CefTRIAXone SODIUM 1 GM in DEXTROSE 5%-WATER 10 ML IV SCH (00:14)
[2018-05-10 00:54] VITALS: BP 117/74
[2018-05-10] MEDS: AZITHROMYCIN 500 MG/NS 250 ML IV SCH (02:17)
[2018-05-10 05:15] VITALS: BP 118/68
[2018-05-10 07:58] VITALS: BP 124/59
[2018-05-10 08:14] LABS: GLUCOMETER DEV NAME(LOC) 5S 2Q; GLUCOSE,POINT OF CARE 102 MG/DL (70-110)
[2018-05-10 08:14] LABS: GLUCOMETER DEV NAME(LOC) 5S 2Q; GLUCOSE,POINT OF CARE 101 MG/DL (70-110)
[2018-05-10 08:14] LABS: GLUCOMETER DEV NAME(LOC) 5S 2Q; GLUCOSE,POINT OF CARE 141 MG/DL (70-110)
[2018-05-10 08:14] LABS: GLUCOMETER DEV NAME(LOC) 5S 2Q; GLUCOSE,POINT OF CARE 104 MG/DL (70-110)
[2018-05-10] MEDS: LISINOPRIL 10 MG TABLET PO SCH (08:18)
[2018-05-10] MEDS: LACTOBACILLUS ACIDOPHILUS/BULGARICUS TABLET PO SCH ×2 (08:18→22:15)
[2018-05-10] MEDS: PANTOPRAZOLE SODIUM 40 MG DR TABLET PO SCH (08:18)
[2018-05-10] MEDS: ACETAMINOPHEN 325 MG TABLET PO PRN ×2 (08:19→22:14)
[2018-05-10] MEDS: HEPARIN SODIUM,PORCINE 5,000 UNITS/ML VIAL SQ SCH ×2 (08:19→22:16)
[2018-05-10] MEDS: CARVEDILOL 6.25 MG TABLET PO SCH ×2 (08:21→22:15)
[2018-05-10] MEDS: ASPIRIN 81 MG CHEWABLE TABLET PO SCH (08:21)
[2018-05-10] MEDS: CLOTRIMAZOLE 10 MG TROCHE PO SCH ×4 (08:21→22:15)
[2018-05-10] MEDS: CYANOCOBALAMIN 500 MCG TABLET PO SCH (08:21)
[2018-05-10 11:19] VITALS: BP 106/57
[2018-05-10 15:17] VITALS: BP 102/68
[2018-05-10 19:59] VITALS: BP 145/77
[2018-05-10] MEDS: ATORVASTATIN CALCIUM 20 MG TABLET PO SCH (22:15)
[2018-05-11 00:04] VITALS: BP 108/54
[2018-05-11 00:39] LABS: GLUCOMETER DEV NAME(LOC) 5S 1M; GLUCOSE,POINT OF CARE 100 MG/DL (70-110)
[2018-05-11] MEDS: CefTRIAXone SODIUM 1 GM in DEXTROSE 5%-WATER 10 ML IV SCH (01:35)
[2018-05-11] MEDS: DONEPEZIL HCL 10 MG TABLET PO SCH ×2 (01:35→20:33)
[2018-05-11] MEDS: AZITHROMYCIN 500 MG/NS 250 ML IV SCH (01:43)
[2018-05-11 04:48] VITALS: BP 101/52
[2018-05-11 06:23] LABS: GLUCOMETER DEV NAME(LOC) 5S 1M; GLUCOSE,POINT OF CARE 102 MG/DL (70-110)
[2018-05-11 07:22] VITALS: BP 103/58
[2018-05-11] MEDS: CYANOCOBALAMIN 500 MCG TABLET PO SCH (08:12)
[2018-05-11] MEDS: ASPIRIN 81 MG CHEWABLE TABLET PO SCH (08:12)
[2018-05-11] MEDS: PANTOPRAZOLE SODIUM 40 MG DR TABLET PO SCH (08:13)
[2018-05-11] MEDS: CLOTRIMAZOLE 10 MG TROCHE PO SCH ×4 (08:13→20:33)
[2018-05-11] MEDS: CARVEDILOL 6.25 MG TABLET PO SCH ×2 (08:13→20:33)
[2018-05-11] MEDS: LACTOBACILLUS ACIDOPHILUS/BULGARICUS TABLET PO SCH ×2 (08:13→20:33)
[2018-05-11] MEDS: HEPARIN SODIUM,PORCINE 5,000 UNITS/ML VIAL SQ SCH ×2 (08:14→20:34)
[2018-05-11 11:08] VITALS: BP 115/57
[2018-05-11] MEDS: ACETAMINOPHEN 325 MG TABLET PO PRN (12:41)
[2018-05-11 15:14] VITALS: BP 117/70
[2018-05-11] MEDS: ATORVASTATIN CALCIUM 20 MG TABLET PO SCH (20:33)
[2018-05-11 20:34] VITALS: BP 122/74
[2018-05-12 00:14] VITALS: BP 116/51
[2018-05-12] MEDS: AZITHROMYCIN 500 MG/NS 250 ML IV SCH (01:01)
[2018-05-12] MEDS: CefTRIAXone SODIUM 1 GM in DEXTROSE 5%-WATER 10 ML IV SCH (01:02)
[2018-05-12 05:53] VITALS: BP 123/61
[2018-05-12 07:28] VITALS: BP 110/60
[2018-05-12] MEDS: CYANOCOBALAMIN 500 MCG TABLET PO SCH (08:19)
[2018-05-12] MEDS: LACTOBACILLUS ACIDOPHILUS/BULGARICUS TABLET PO SCH (08:19)
[2018-05-12] MEDS: CLOTRIMAZOLE 10 MG TROCHE PO SCH ×3 (08:20→16:07)
[2018-05-12] MEDS: PANTOPRAZOLE SODIUM 40 MG DR TABLET PO SCH (08:20)
[2018-05-12] MEDS: CARVEDILOL 6.25 MG TABLET PO SCH (08:20)
[2018-05-12] MEDS: ASPIRIN 81 MG CHEWABLE TABLET PO SCH (08:20)
[2018-05-12] MEDS: HEPARIN SODIUM,PORCINE 5,000 UNITS/ML VIAL SQ SCH (08:21)
[2018-05-12] MEDS: ACETAMINOPHEN 325 MG TABLET PO PRN ×2 (08:54→17:10)
[2018-05-12 11:28] VITALS: BP 101/53
[2018-05-12] MEDS: MAGNESIUM HYDROXIDE SUSPENSION 30 ML UDCUP PO PRN (11:56)
[2018-05-12 14:35] LABS: BASOPHILS % (AUTO) 0.8 % (0.0-2.0); EOSINOPHILS % (AUTO) 3.7 % (1.0-6.0); HEMATOCRIT 32.6 % (36-46); HEMOGLOBIN 11.1 g/dL (12.0-16.0); LYMPHOCYTES # (AUTO) 1.9 K/uL (1.0-4.8); LYMPHOCYTES % (AUTO) 19.9 % (22.0-44.0); MEAN CORPUSCULAR HGB CONC 33.9 G/dL (31.0-37.0); MEAN CORPUSCULAR VOLUME 89 fL (80-100); MONOCYTES # (AUTO) 0.9 K/uL (0.1-1.0); MONOCYTES % (AUTO) 9.2 % (2.0-9.0); NEUTROPHILS # (AUTO) 6.4 K/uL (1.8-7.7); NEUTROPHILS % (AUTO) 66.4 % (40.0-70.0); PLATELET COUNT (AUTO) 246 K/uL (150-450); RED BLOOD CELL COUNT(AUTO) 3.69 MIL/uL (4.00-5.20); RED CELL DISTRIBUTION WIDTH 14.5 % (11.5-14.5)
[2018-05-12 14:38] LABS: ANION GAP 7 mmol/L (8-16); CALCIUM, TOTAL 8.8 mg/dL (8.8-10.5); CARBON DIOXIDE 27 mmol/L (22-29); CHLORIDE 98 mmol/L (98-107); CREATININE 0.78 mg/dL (0.60-1.30); GLOMERULAR FILTR. RATE CALC > 60 mL/min (>60); GLUCOSE,RANDOM 144 mg/dL (70-110); POTASSIUM 4.9 mmol/L (3.5-5.1); SODIUM SERUM 132 mmol/L (136-145); UREA NITROGEN, BLOOD 16 mg/dL (7-18)
[2018-05-12 14:54] LABS: GLUCOMETER DEV NAME(LOC) 5S 2Q; GLUCOSE,POINT OF CARE 132 MG/DL (70-110)
[2018-05-12 14:54] LABS: GLUCOMETER DEV NAME(LOC) 5S 2Q; GLUCOSE,POINT OF CARE 123 MG/DL (70-110)
[2018-05-12 14:55] LABS: GLUCOMETER DEV NAME(LOC) 5S 2Q; GLUCOSE,POINT OF CARE 110 MG/DL (70-110)
[2018-05-12 14:55] LABS: GLUCOMETER DEV NAME(LOC) 5S 2Q; GLUCOSE,POINT OF CARE 108 MG/DL (70-110)
[2018-05-12 14:55] LABS: GLUCOMETER DEV NAME(LOC) 5S 2Q; GLUCOSE,POINT OF CARE 125 MG/DL (70-110)
[2018-05-12 14:57] LABS: LEGIONELLA PNEUMO AG URINE Negative (Negative); ORGANISM ID Not indicated.; S PNEUMO SOURCE Urine; STREP PNEUMONIAE AG URINE Negative (Negative); STREP.PNEUMO BODY FLUID CULT. Not Indicated
[2018-05-12 15:10] VITALS: BP 106/62
[2018-05-12] MEDS ORDERED: DONE10TA8 PO (17:23)
[2018-05-12] MEDS ORDERED: ACID1TAB8 PO (17:28)
[2018-05-12] MEDS ORDERED: ATOR20TA86 PO (17:29)
[2018-05-12] MEDS ORDERED: [UNRECOGNIZED DRUG - CODE] SQ (17:32)
[2018-05-12] MEDS ORDERED: CEFTR1IV IV (17:34)
[2018-05-12] MEDS ORDERED: AZITH500IV IV (17:35)
[2018-05-12] MEDS ORDERED: PANT40TA25 PO (17:36)
[2018-05-12] MEDS ORDERED: ONDA4TAB7 IVP (17:38)
[2018-05-12] MEDS ORDERED: TEMA15CA PO (17:39)
[2018-05-13 20:49] LABS: GLUCOMETER DEV NAME(LOC) 5S 1M; GLUCOSE,POINT OF CARE 138 MG/DL (70-110)
[2018-05-13 20:49] LABS: GLUCOMETER DEV NAME(LOC) 5S 1M; GLUCOSE,POINT OF CARE 103 MG/DL (70-110)
[2018-05-13 20:49] LABS: GLUCOMETER DEV NAME(LOC) 5S 1M; GLUCOSE,POINT OF CARE 109 MG/DL (70-110)
== END 2018-05-12 21:15 | DRG 193 ==
LOC: EMS 17:30 → 5S 21:30
PROVIDERS: ADMIT Internal Medicine; ATTEND Internal Medicine
DX: J18.9 Pneumonia, unspecified organism (principal); G92 Toxic encephalopathy; I25.110 Atherosclerotic heart disease of native coronary artery with unstable angina pectoris; R65.10 Systemic inflammatory response syndrome (SIRS) of non-infectious origin without acute organ dysfunction; E11.65 Type 2 diabetes mellitus with hyperglycemia; E78.5 Hyperlipidemia, unspecified; F03.90 Unspecified dementia, unspecified severity, without behavioral disturbance, psychotic disturbance, mood disturbance, and anxiety; H40.9 Unspecified glaucoma; F32.9 Major depressive disorder, single episode, unspecified; R55 Syncope and collapse; E78.00 Pure hypercholesterolemia, unspecified; J45.909 Unspecified asthma, uncomplicated; K21.9 Gastro-esophageal reflux disease without esophagitis; Z96.652 Presence of left artificial knee joint; M19.90 Unspecified osteoarthritis, unspecified site; I11.9 Hypertensive heart disease without heart failure; M25.562 Pain in left knee; K22.70 Barrett's esophagus without dysplasia; M41.86 Other forms of scoliosis, lumbar region; Z82.5 Family history of asthma and other chronic lower respiratory diseases; Z83.3 Family history of diabetes mellitus; Z79.899 Other long term (current) drug therapy; Z88.1 Allergy status to other antibiotic agents; Z79.82 Long term (current) use of aspirin; Z79.4 Long term (current) use of insulin
CPT/HCPCS: 51702; 70450; 83605; 83735; 84145; 84439; 84443; 86738; 87040; 87449; 87899; 93005; 93306; 93880; 96360; 97110; 97163; 97166; 97530; 99285; J0456; J0696; J1644; J1956; J7040; J7050; J7060

== ENCOUNTER 2018-06-26 08:47 | Emergency (ER) | payer MEDICARE, OTHER ==
[~2018-06-26] VITALS: Ht 152.4 cm; Wt 57.2 kg
[~2018-06-26 08:47] MED LIST changes: +ACID1TAB8 PO; -CEFX1I IM; +CLOT10T PO; +CYAN100099 PO; -CYAN250014 PO; -LISI-661 PO; -OXYC-38 PO; -ZOLP5 PO
[2018-06-26] MEDS ORDERED: CALC-1038 PO (09:40)
[2018-06-26] MEDS ORDERED: SOLI5 PO (09:40)
[2018-06-26] MEDS ORDERED: DICL50TA9 PO (09:40)
[2018-06-26] MEDS ORDERED: ACETAMINOPHEN 325 MG TABLET PO ONE (09:45)
[2018-06-26 09:59] LABS: GLUCOSE,POINT OF CARE 124 MG/DL (70-110)
[2018-06-26 10:24] VITALS: BP 149/59
[2018-06-26] MEDS ORDERED: BACITRACIN 0.9 GM PACKET OINTMENT TP ONE (10:46)
== END 2018-06-26 11:43 | disposition home or self-care (01) ==
LOC: EMS 08:48
DX: M54.5 Low back pain (principal); F03.90 Unspecified dementia, unspecified severity, without behavioral disturbance, psychotic disturbance, mood disturbance, and anxiety; E11.9 Type 2 diabetes mellitus without complications; E78.00 Pure hypercholesterolemia, unspecified; K21.9 Gastro-esophageal reflux disease without esophagitis; J45.909 Unspecified asthma, uncomplicated; Z88.8 Allergy status to other drugs, medicaments and biological substances; Z79.4 Long term (current) use of insulin; W18.39XA Other fall on same level, initial encounter; Y93.89 Activity, other specified; Y92.009 Unspecified place in unspecified non-institutional (private) residence as the place of occurrence of the external cause; Y99.8 Other external cause status
CPT/HCPCS: 82948; 99283

== ENCOUNTER → 2018-08-31 | Outpatient (CLI) | payer OTHER ==
[~2018-08-31] MED LIST changes: +CALC-1038 PO; +DICL50TA9 PO; +SOLI5 PO
== END | disposition home or self-care (01) ==
LOC: RADPV 09:53
PROVIDERS: ATTEND Internal Medicine
DX: R13.12 Dysphagia, oropharyngeal phase (principal)
CPT/HCPCS: 74230; 92611